=== PATIENT | male | born 1935 | race Caucasian/White ===

== ENCOUNTER 2021-03-09 18:27 | Emergency (ER) | payer BC, MEDICARE ==
[2021-03-09 20:17] LABS: Basophils # (A) 0.1 k/uL (0-0.2); Basophils % (A) 1 %; Eosinophils # (A) 0.5 k/uL (0-0.7); Eosinophils % (A) 5 %; HCT 43.9 % (39.0-53.0); HGB 15.1 gm/dL (13.0-17.5); Lymphocytes # (A) 1.5 k/uL (1.0-4.8); Lymphocytes % (A) 15 %; MCH 31.1 pg (25.0-35.0); MCHC 34.5 g/dL (31.0-37.0); MCV 90.2 fL (80.0-100.0); Mean Platelet Volume 6.4; Monocytes # (A) 0.6 k/uL (0-1.0); Monocytes % (A) 6 %; Neutrophils # (A) 6.9 k/uL (1.3-7.7); Neutrophils % (A) 71 %; Platelet Count 212 k/uL (150-450); RBC 4.87 m/uL (4.30-5.90); RDW 13.6 % (11.5-15.5); WBC 9.6 k/uL (3.8-10.6)
[2021-03-09 20:25] LABS: Albumin 4.5 g/dL (3.5-5.0); Calcium 9.7 mg/dL (8.4-10.2); Potassium 4.7 mmol/L (3.5-5.1); Total Bilirubin 0.6 mg/dL (0.2-1.3); Total Protein 7.8 g/dL (6.3-8.2)
[2021-03-09 20:35] LABS: Appearance,Urine Clear (Clear); Bilirubin,Urine Negative (Negative); Blood,Urine Negative (Negative); Color,Urine Yellow; Glucose,Urine (UA) Negative (Negative); Ketones,Urine Negative (Negative); Leukocyte Esterase,Urine Negative (Negative); Nitrite,Urine Negative (Negative); PH, Urine 5.5 (5.0-8.0); Protein,Urine Negative (Negative); Specific Gravity,Urine 1.015 (1.001-1.035); Urobilinogen,Urine <2.0 mg/dL (<2.0)
--- NOTE | 2021-03-09 20:56 | ED ---
Skin/Abscess/FB HPI - General Chief complaint: Skin/Abscess/Foreign Body Stated complaint: skin problem Source: patient Mode of arrival: ambulatory - History of Present Illness Initial comments: Patient is an 85-year-old male presents to the emergency department with reported rash to his left upper extremity. Patient states he was attempting to wash his hands for dinner when he noted that he had multiple pink nodules to his left forearm. Patient had one specific area on his dorsal hand which he thought he saw "worms coming out of". His sister at bedside agrees that she saw the worms. He reports his whole hand turned black and became swollen. Patient states only has left arm is affected. 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 He denies any head trauma recently. No medication changes. Denies use of any drugs. No other alleviating, precipitating or modifying factors - Related Data Home Medications Medication Instructions Recorded Confirmed Atenolol [Tenormin] 50 mg PO DAILY 03/09/21 03/09/21 Glucosamine Sulfate 500 mg PO DAILY 03/09/21 03/09/21 Lisinopril-Hctz 10-12.5 mg 1 tab PO DAILY 03/09/21 03/09/21 [Zestoretic 10-12.5] Pioglitazone [Actos] 15 mg PO BID 03/09/21 03/09/21 Prevagen 1 tab PO DAILY 03/09/21 03/09/21 Rosuvastatin [Crestor] 10 mg PO HS 03/09/21 03/09/21 Vit C/E/Zn/Coppr/Lutein/Zeaxan 1 cap PO BID 03/09/21 03/09/21 [Preservision Areds 2 Softgel] Allergies Allergy/AdvReac Type Severity Reaction Status Date / Time onion Allergy Rash/Hives Verified 03/09/21 19:42 Review of Systems ROS Statement: Those systems with pertinent positive or pertinent negative responses have been documented in the HPI. ROS Other: All systems not noted in ROS Statement are negative. Past Medical History Past Medical History: Diabetes Mellitus, Hyperlipidemia, Hypertension Additional Past Medical History / Comment(s): Melenoma History of Any Multi-Drug Resistant Organisms: None Reported Past Surgical History: Cholecystectomy Past Psychological History: No Psychological Hx Reported Smoking Status: Never smoker Past Alcohol Use History: None Reported Past Drug Use History: None Reported Course Vital Signs 03/09/21 03/09/21 18:31 22:18 Temperature 97.8 F 98.0 F Pulse Rate 58 L 61 Respiratory 17 18 Rate Blood Pressure 155/67 151/67 O2 Sat by Pulse 96 96 Oximetry Medical Decision Making - Medical Decision Making Upon arrival the patient is placed into room 3. A thorough history and physical exam was performed. There is a small area on the dorsum of the patient's left hand which is remarkable for an abrasion. There is a small amount of dried blood however no active bleeding. No identification of any parasites. Additional red papules which extend up the patient's left arm. Appears consistent with a contact dermatitis. Due to the concern for the patient's hallucinations I did complete laboratory studies all of which are reviewed and are within normal limits. I did call and speak with Dr. Tellez who states the patient has always been very sharp with his medical history and never presented before with such complaint. 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 Patient is not acutely psychotic headache. No suicidal or homicidal ideations. Because of this Dr. Tellez and I felt that the patient could be discharged home and follow-up in her office. I will give him a cream for contact dermatitis. Patient is to place on his left arm 3 times daily. Return to the emergency room for any new or worsening symptoms. Patient agreed to this he was discharged home in stable condition - Lab Data Result diagrams: 03/09/21 19:57 03/09/21 19:57 Lab Results 03/09/21 03/09/21 03/09/21 Range/Units 19:57 19:57 19:57 WBC 9.6 (3.8-10.6) k/uL RBC 4.87 (4.30-5.90) m/uL Hgb 15.1 (13.0-17.5) gm/dL Hct 43.9 (39.0-53.0) % MCV 90.2 (80.0-100.0) fL MCH 31.1 (25.0-35.0) pg MCHC 34.5 (31.0-37.0) g/dL RDW 13.6 (11.5-15.5) % Plt Count 212 (150-450) k/uL MPV 6.4 Neutrophils % 71 % Lymphocytes % 15 % Monocytes % 6 % Eosinophils % 5 % Basophils % 1 % Neutrophils # 6.9 (1.3-7.7) k/uL Lymphocytes # 1.5 (1.0-4.8) k/uL Monocytes # 0.6 (0-1.0) k/uL Eosinophils # 0.5 (0-0.7) k/uL Basophils # 0.1 (0-0.2) k/uL Sodium 137 (137-145) mmol/L Potassium 4.7 (3.5-5.1) mmol/L Chloride 101 (98-107) mmol/L Carbon Dioxide 26 (22-30) mmol/L Anion Gap 10 mmol/L BUN 36 H (9-20) mg/dL Creatinine 1.52 H (0.66-1.25) mg/dL Est GFR (CKD-EPI)AfAm 47 (>60 ml/min/1.73 sqM) Est GFR (CKD-EPI)NonAf 41 (>60 ml/min/1.73 sqM) Glucose 145 H (74-99) mg/dL Plasma Lactic Acid Chon (0.7-2.0) mmol/L Calcium 9.7 (8.4-10.2) mg/dL Total Bilirubin 0.6 (0.2-1.3) mg/dL AST 34 (17-59) U/L ALT 17 (4-49) U/L Alkaline Phosphatase 77 (38-126) U/L Total Protein 7.8 (6.3-8.2) g/dL Albumin 4.5 (3.5-5.0) g/dL TSH 6.840 H (0.465-4.680) mIU/L Free T4 1.21 (0.78-2.19) ng/dL Urine Color Yellow Urine Appearance Clear (Clear) Urine pH 5.5 (5.0-8.0) Ur Specific Stewardson 1.015 (1.001-1.035) Urine Protein Negative (Negative) Urine Glucose (UA) Negative (Negative) Urine Ketones Negative (Negative) Urine Blood Negative (Negative) Urine Nitrite Negative (Negative) Urine Bilirubin Negative (Negative) Urine Urobilinogen <2.0 (<2.0) mg/dL Ur Leukocyte Esterase Negative (Negative) Urine Opiates Screen (NotDetected) Ur Oxycodone Screen (NotDetected) Urine Methadone Screen (NotDetected) Ur Propoxyphene Screen (NotDetected) Ur Barbiturates Screen (NotDetected) U Tricyclic Antidepress (NotDetected) Ur Phencyclidine Scrn (NotDetected) Ur Amphetamines Screen (NotDetected) U Methamphetamines Scrn (NotDetected) U Benzodiazepines Scrn (NotDetected) Urine Cocaine Screen (NotDetected) U Marijuana (THC) Screen (NotDetected) 03/09/21 03/09/21 Range/Units 19:57 19:57 WBC (3.8-10.6) k/uL RBC (4.30-5.90) m/uL Hgb (13.0-17.5) gm/dL Hct (39.0-53.0) % MCV (80.0-100.0) fL MCH (25.0-35.0) pg MCHC (31.0-37.0) g/dL RDW (11.5-15.5) % Plt Count (150-450) k/uL MPV Neutrophils % % Lymphocytes % % Monocytes % % Eosinophils % % Basophils % % Neutrophils # (1.3-7.7) k/uL Lymphocytes # (1.0-4.8) k/uL Monocytes # (0-1.0) k/uL Eosinophils # (0-0.7) k/uL Basophils # (0-0.2) k/uL Sodium (137-145) mmol/L Potassium (3.5-5.1) mmol/L Chloride (98-107) mmol/L Carbon Dioxide (22-30) mmol/L Anion Gap mmol/L BUN (9-20) mg/dL Creatinine (0.66-1.25) mg/dL Est GFR (CKD-EPI)AfAm (>60 ml/min/1.73 sqM) Est GFR (CKD-EPI)NonAf (>60 ml/min/1.73 sqM) Glucose (74-99) mg/dL Plasma Lactic Acid Chon 1.3 (0.7-2.0) mmol/L Calcium (8.4-10.2) mg/dL Total Bilirubin (0.2-1.3) mg/dL AST (17-59) U/L ALT (4-49) U/L Alkaline Phosphatase (38-126) U/L Total Protein (6.3-8.2) g/dL Albumin (3.5-5.0) g/dL TSH (0.465-4.680) mIU/L Free T4 (0.78-2.19) ng/dL Urine Color Urine Appearance (Clear) Urine pH (5.0-8.0) Ur Specific Stewardson (1.001-1.035) Urine Protein (Negative) Urine Glucose (UA) (Negative) Urine Ketones (Negative) Urine Blood (Negative) Urine Nitrite (Negative) Urine Bilirubin (Negative) Urine Urobilinogen (<2.0) mg/dL Ur Leukocyte Esterase (Negative) Urine Opiates Screen Not Detected (NotDetected) Ur Oxycodone Screen Not Detected (NotDetected) Urine Methadone Screen Not Detected (NotDetected) Ur Propoxyphene Screen Not Detected (NotDetected) Ur Barbiturates Screen Not Detected (NotDetected) U Tricyclic Antidepress Not Detected (NotDetected) Ur Phencyclidine Scrn Not Detected (NotDetected) Ur Amphetamines Screen Not Detected (NotDetected) U Methamphetamines Scrn Not Detected (NotDetected) U Benzodiazepines Scrn Not Detected (NotDetected) Urine Cocaine Screen Not Detected (NotDetected) U Marijuana (THC) Screen Not Detected (NotDetected) Disposition Clinical Impression: Contact dermatitis Disposition: HOME SELF-CARE Condition: Stable Instructions (If sedation given, give patient instructions): Contact Dermatitis (ED) Additional Instructions: Please use the cream 3 times daily and follow-up with Dr. Tellez. Call tomorrow to make an appointment. Return to the ED for any new or worsening symptoms. Is patient prescribed a controlled substance at d/c from ED?: No Referrals: Amber Tellez MD [Primary Care Provider] - 1-2 days Time of Disposition: 21:53
--- NOTE | 2021-03-09 21:18 | CT ---
EXAMINATION TYPE: CT brain wo con DATE OF EXAM: 03/09/2021 COMPARISON: None HISTORY: confusion CT DLP: 1092.4 mGycm Automated exposure control for dose reduction was used. Exam performed without contrast. There is diffuse cerebral atrophy. There is no mass effect nor midline shift. There is no sign of int racranial hemorrhage. There is some mucosal thickening in the ethmoid air cells. Calvarium is intact. There is no evidence of cerebral edema. IMPRESSION: Cerebral atrophy. No acute intracranial abnormality.
[2021-03-09 21:27] LABS: Amphetamine Screen,Urine Not Detected (NotDetected); Barbiturate Screen,Urine Not Detected (NotDetected); Benzodiazepines Screen,Urine Not Detected (NotDetected); Cocaine Screen,Urine Not Detected (NotDetected); Methadone Screen, Urine Not Detected (NotDetected); Opiate Screen,Urine Not Detected (NotDetected); Oxycodone Screen, Urine Not Detected (NotDetected); Phencyclidine Screen,Urine Not Detected (NotDetected); Tricyclic Antidepressant,Urine Not Detected (NotDetected); Urn Cannabinoid Scrn Not Detected (NotDetected)
[2021-03-09 21:29] LABS: T4, Free (Free Thyroxine) 1.21 ng/dL (0.78-2.19)
[2021-03-09] MEDS ORDERED: HYDROCORTISONE 1% CREAM 30 GM TUBE TOPICAL STA (21:50)
[2021-03-09 22:22] VITALS: BP 151/67; PULSE 61; RESP 18; TEMP 98
== END 2021-03-09 22:18 | disposition home or self-care (01) ==
LOC: EC 18:27
DX: L25.9 Unspecified contact dermatitis, unspecified cause (principal); E11.9 Type 2 diabetes mellitus without complications; E78.5 Hyperlipidemia, unspecified; I10 Essential (primary) hypertension; Z90.49 Acquired absence of other specified parts of digestive tract
CPT/HCPCS: 36415; 70450; 80053; 80306; 81003; 83605; 84439; 84443; 85025; 99283

== ENCOUNTER 2023-01-30 20:03 | Emergency (ER) | payer MEDICARE ==
[2023-01-30 20:16] VITALS: TEMP 97.4
[2023-01-30] MEDS ORDERED: SODIUM CHLORIDE 0.9% 1,000 ML IV STA (20:37)
--- NOTE | 2023-01-30 21:16 | CT ---
EXAMINATION TYPE: CT brain wo con CT DLP: 1123.4 mGycm, Automated exposure control for dose reduction was used. DATE OF EXAM: 01/30/2023 9:09 PM COMPARISON: . CLINICAL INDICATION:Male, 87 years old with history of lightheaded, melanoma on scalp, visual changes , dizziness TECHNIQUE: Brain: Axial CT images of the brain were obtained with coronal and sagittal reformats created and rev iewed. Contrast used: None. Oral contrast used: None. FINDINGS: Brain: Extra-axial spaces: No abnormal extra-axial fluid collections. Ventricular system: Within normal limits Cerebral parenchyma: No acute intraparenchymal hemorrhage or mass effect. The muñoz-white junction is well differentiated. Cerebellum: Unremarkable. Mass effect: No evidence of midline shift. Intracranial vasculature: unremarkable Soft tissues: Normal. Calvarium/osseous structures: No depressed skull fracture. Paranasal sinuses and mastoid air cells: Mild scattered paranasal sinus disease. Visualized orbits: Bilateral aphakia. IMPRESSION: No acute intracranial process.
--- NOTE | 2023-01-30 21:18 | XR ---
EXAMINATION TYPE: XR chest 2V DATE OF EXAM: 01/30/2023 9:12 PM COMPARISON: None TECHNIQUE: XR chest 2V Frontal and lateral views of the chest. CLINICAL INDICATION:Male, 87 years old with history of lightheaded; FINDINGS: Lungs/Pleura: Low lung volumes are present. Bibasilar atelectasis. Elevated right diaphragm. There is no evidence of pleural effusion, focal consolidation, or pneumothorax. Pulmonary vascularity: Unremarkable. Heart/mediastinum: Cardiomediastinal silhouette is unremarkable. Musculoskeletal: Degenerative changes of the shoulder joints. IMPRESSION: Lung volumes, No acute cardiopulmonary disease/process.
[2023-01-30 21:28] LABS: Basophils % (A) 0 %; Eosinophils # (A) 0.2 k/uL (0-0.7); Eosinophils % (A) 2 %; HCT 42.9 % (39.0-53.0); HGB 14.5 gm/dL (13.0-17.5); Lymphocytes # (A) 1.3 k/uL (1.0-4.8); Lymphocytes % (A) 13 %; MCH 30.7 pg (25.0-35.0); MCHC 33.8 g/dL (31.0-37.0); MCV 90.7 fL (80.0-100.0); Mean Platelet Volume 6.9; Monocytes # (A) 0.7 k/uL (0-1.0); Monocytes % (A) 7 %; Neutrophils # (A) 7.5 k/uL (1.3-7.7); Neutrophils % (A) 76 %; Platelet Count 212 k/uL (150-450); RBC 4.73 m/uL (4.30-5.90); RDW 13.7 % (11.5-15.5); WBC 9.8 k/uL (3.8-10.6)
[2023-01-30 21:41] LABS: African American GFR (CKD) 46 (>60 ml/min/1.73 sqM); Alcohol <10 mg/dL; Anion Gap 13 mmol/L; Blood Urea Nitrogen 34 mg/dL (9-20); Calcium 9.7 mg/dL (8.4-10.2); Carbon Dioxide 24 mmol/L (22-30); Chloride 102 mmol/L (98-107); Glucose 152 mg/dL (74-99); Non-African American GFR(CKD) 40 (>60 ml/min/1.73 sqM); Potassium 4.3 mmol/L (3.5-5.1); Sodium 139 mmol/L (137-145)
[2023-01-30] MEDS ORDERED: SODIUM CHLORIDE 0.9% 500 ML 500 ML IV STA (22:02)
--- NOTE | 2023-01-30 22:44 | ED ---
General Adult HPI - General Chief complaint: Skin/Abscess/Foreign Body Stated complaint: cellulitis Time Seen by Provider: 01/30/23 20:24 Source: patient, RN notes reviewed, old records reviewed Mode of arrival: ambulatory Limitations: no limitations - History of Present Illness Initial comments: Patient is an 87-year-old male who presents emergency department. Chief complaint is lightheadedness but also complaining of worms on his arms as well as some pain and discharge from a spot of skin biopsy for melanoma over his head. States he feels lightheaded intermittently. States it is not severe and has resolved. Also was complaining of blurred vision but believes it is secondary to tearing in his eyes. He states when with tears away, and the p atient is no longer blurred. He is concerned that he has worms crawling under his skin and he states he plucked them out. He is also concerned that they may have gotten into his melanoma site on top of his head and there are areas of excoriations over the site with some erythema surrounding it. Presents for further evaluation and this time. States she was placed on a medication, Pimozide, to treat ticks which are bugs but he believes he has worms. States symptoms overall haven't improved since that time. Presents for further evaluation this time. This presentation is almost identical to prior visits from March 2021. - Related Data Home Medications Medication Instructions Recorded Confirmed Glucosamine Sulfate 500 mg PO DAILY 03/09/21 03/09/21 Lisinopril-Hctz 10-12.5 mg 1 tab PO DAILY 03/09/21 03/09/21 [Zestoretic 10-12.5] Pioglitazone [Actos] 15 mg PO BID 03/09/21 03/09/21 Prevagen 1 tab PO DAILY 03/09/21 03/09/21 Rosuvastatin [Crestor] 10 mg PO HS 03/09/21 03/09/21 Vit C/E/Zn/Coppr/Lutein/Zeaxan 1 cap PO BID 03/09/21 03/09/21 [Preservision Areds 2 Softgel] atenoloL [Tenormin] 50 mg PO DAILY 03/09/21 03/09/21 Previous Rx's Medication Instructions Recorded Cephalexin [Keflex] 500 mg PO Q12HR 7 Days #14 cap 01/30/23 Allergies Allergy/AdvReac Type Severity Reaction Status Date / Time onion Allergy Rash/Hives Verified 03/09/21 19:42 Review of Systems ROS Statement: Those systems with pertinent positive or pertinent negative responses have been documented in the HPI. Review of Systems: CONST: Denies fever EYES: Denies blurry vision ENT: Denies nasal congestion C/V: Denies Chest pain RESP: Denies shortness of breath GI: Denies abdominal pain : Denies dysuria SKIN: Endorses chronic skin rash, as well as concern for rash on head. MSK: Denies joint pain. NEURO: Denies headache ROS Other: All systems not noted in ROS Statement are negative. Past Medical History Past Medical History: Diabetes Mellitus, Hyperlipidemia, Hypertension Additional Past Medical History / Comment(s): Melenoma History of Any Multi-Drug Resistant Organisms: None Reported Past Surgical History: Cholecystectomy Past Psychological History: No Psychological Hx Reported Smoking Status: Never smoker Past Alcohol Use History: None Reported Past Drug Use History: None Reported General Exam - General Exam Comments Initial Comments: General: Appears in no acute distress. HEAD: Normal with no signs of head trauma. Patient has a melanoma biopsy site located over the left scalp with excoriations over it is erythematous around it. No fluctuance palpated. EYES: PERRLA, EOMI, conjunctiva normal, no discharge. Normal visual acuity. Pupils are 3 mm equal bilaterally. Patient has mild tears from both eyes. ENT: Hearing grossly intact, normal oropharynx. RESPIRATORY: Clear breath sounds bilaterally. No wheezes, rales, or rhonchi. C/V: Regular rate and rhythm. S1 and S2 auscultated, no edema, peripheral pulses 2+ and intact throughout ABD: Abd is soft, nontender, nondistended EXT: Normal range of motion, no obvious deformity SKIN: Patient has point lines located over his bilateral arms which she states are worms. This appeared to be more of scars from excoriations. These are chronic and noted on prior visits. Patient also has concerning signs for possible mild cellulitis located on the scalp at the site of prior melanoma due to excoriations. NEURO: Alert and oriented x 4. Cranial nerves II-XII intact. No focal sensory or strength deficits. Limitations: no limitations Course Vital Signs 01/30/23 01/30/23 01/30/23 20:15 20:30 23:42 Temperature 97.4 F L Pulse Rate 105 H 77 72 Respiratory 20 20 18 Rate Blood Pressure 121/78 135/91 132/71 O2 Sat by Pulse 97 100 95 Oximetry Medical Decision Making - Medical Decision Making Was pt. sent in by a medical professional or institution (, [employer], IRONWORKER W[employer]ENCE E[employer]OR, urgent care, hospital, or retirement...) When possible be specific @ -No Did you speak to anyone other than the patient for history (EMS, parent, family, police, friend...)? What history was obtained from this source @ -No Did you review nursing and triage notes (agree or disagree)? Why? @ -I reviewed and agree with nursing and triage notes Were old charts reviewed (outside hosp., previous admission, EMS record, old EKG, old radiological studies, urgent care reports/EKG's, retirement records)? Report findings @ -Old charts reviewed from prior visit from March 2021, when he was complaining of similar concerns. On that visit, Dr. Tellez was contacted by emergency department physician over concern for underlying psychiatric illness over concern for the worms. He was cleared for follow up with Dr. Tellez. Differential Diagnosis (chest pain, altered mental status, abdominal pain women, abdominal pain men, vaginal bleeding, weakness, fever, dyspnea, syncope, headache, dizziness, GI bleed, back pain, seizure, CVA, palpatations, mental health, musculoskeletal)? @ -Dehydration, infection, cellulitis, psychiatric illness. This list is not all-inclusive. EKG interpreted by me (3pts min.). @ -As above X-rays interpreted by me (1pt min.). @ -Chest x-ray shows no obvious acute cardio pulmonary process. CT interpreted by me (1pt min.). @ -CT brain shows no obvious acute intracranial process. U/S interpreted by me (1pt. min.). @ -None done What testing was considered but not performed or refused? (CT, X-rays, U/S, labs)? Why? @ -None What meds were considered but not given or refused? Why? @ -None Did you discuss the management of the patient with other professionals (professionals i.e. , [employer], IRONWORKER W[employer] FENCE E[employer]OR, lab, RT, psych nurse, social science instructor, music internship, teacher, youth corrections officer, correctional casework specialist)? Give summary @ -No Was smoking cessation discussed for >3mins.? @ -No Was critical care preformed (if so, how long)? @ -No Were there social determinants of health that impacted care today? How? (Homelessness, low income, unemployed, alcoholism, drug addiction, transportation, low edu. Level, literacy, decrease access to med. care, usp, rehab)? @ -No Was there de-escalation of care discussed even if they declined (Discuss DNR or withdrawal of care, Hospice)? DNR status @ -No What co-morbidities impacted this encounter? (DM, HTN, Smoking, COPD, CAD, Cancer, CVA, ARF, Chemo, Hep., AIDS, mental health diagnosis, sleep apnea, morbid obesity)? 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 Was patient admitted / discharged? Hospital course, mention meds given and route, prescriptions, significant lab abnormalities, going to OR and other pertinent info. @ -Based on the patient's presentation and physical exam, he continues to talk about worms with me that this appears to be a chronic thing. Is visiting previously for similar complaints. Patient is not a danger to himself or others. No suicidal or homicidal concerns at this time. Therefore as I see is medically cleared he will be discharged home, similar to last visit. He appears to be taking care of himself. As appear mildly dehydrated and we will obtain basic labs, screening troponin, EKG. CT brain and chest x-ray will be obtained. He will be given a 1 L fluid bolus. Patient was in agreement this plan. I'm concerned for possible cellulitis over the excoriations at the biopsy site on his scalp and likely will require antibiotics outpatient. Vital signs within acceptable limits. EKG showed no signs of acute ischemia. Laboratory studies are remarkable for CK D, and elevated lactic acid 3.3 which is likely secondary to dehydration which will be repeated after 1 L fluid bolus, undetectable troponin. Remainder the workup is unremarkable. Imaging was unremarkable. I discussed the findings with the patient. He is still concerned about worms. I discussed that he needs to follow-up with his PCP Dr. Asher she has been managing his outpatient. He was in agreement this plan. We will repeat lactic acid prior to discharge.Repeat lactic acid is within normal limits. On re-evaluation. No current dizziness, no current blurry vision. Feels improved. We discussed at length that the medication he is on is to treat motor tics and not actual bugs. Patient states he understands but keeps coming back to saying he has worms. This is a chronic presentation for the patient. Patient will be treated for cellulitis. I will provide the patient with a prescription for Keflex. I instructed the patient to follow up with their PCP in the next 1-3 days. . I explained that the patient should return to the emergency department if they experience any worsening symptoms. Strict return precautions were discussed with the patient. The patient expressed understanding of these instructions. I answered all questions that the patient had. The patient was discharged home in good condition with their prescriptions and follow up information. Undiagnosed new problem with uncertain prognosis? @ -No Drug Therapy requiring intensive monitoring for toxicity (Heparin, Nitro, Insulin, Cardizem)? @ -No Were any procedures done? @ -No Diagnosis/symptom? @ -Dehydration Acute, or Chronic, or Acute on Chronic? @ -Acute Uncomplicated (without systemic symptoms) or Complicated (systemic symptoms)? @ -Uncomplicated Side effects of treatment? @ -No Exacerbation, Progression, or Severe Exacerbation? @ -No Poses a threat to life or bodily function? How? (Chest pain, [place], [place], pneumonia, PE, COPD, DKA, ARF, appy, cholecystitis, CVA, Diverticulitis, Homicidal, Suicidal, threat to staff... and all critical care pts) @ -No Diagnosis/symptom? @ -CK D Acute, or Chronic, or Acute on Chronic? @ -Chronic Uncomplicated (without systemic symptoms) or Complicated (systemic symptoms)? @ -Uncomplicated Side effects of treatment? @ -none Exacerbation, Progression, or Severe Exacerbation] @ -no Poses a threat to life or bodily function? @ -no Diagnosis/symptom? @ -Cellulitis Acute, or Chronic, or Acute on Chronic? @ -Acute Uncomplicated (without systemic symptoms) or Complicated (systemic symptoms)? @ -Uncomplicated Side effects of treatment? @ -none Exacerbation, Progression, or Severe Exacerbation] @ -no Poses a threat to life or bodily function? @ -no Diagnosis/symptom? @ -Concern for underlying psychiatric diagnosis Acute, or Chronic, or Acute on Chronic? @ -Acute Uncomplicated (without systemic symptoms) or Complicated (systemic symptoms)? @ -Uncomplicated Side effects of treatment? @ -none Exacerbation, Progression, or Severe Exacerbation] @ -no Poses a threat to life or bodily function? @ -no. - Lab Data Result diagrams: 01/30/23 20:54 01/30/23 20:54 Lab Results 01/30/23 01/30/23 01/30/23 Range/Units 20:54 20:54 20:54 WBC 9.8 (3.8-10.6) k/uL RBC 4.73 (4.30-5.90) m/uL Hgb 14.5 (13.0-17.5) gm/dL Hct 42.9 (39.0-53.0) % MCV 90.7 (80.0-100.0) fL MCH 30.7 (25.0-35.0) pg MCHC 33.8 (31.0-37.0) g/dL RDW 13.7 (11.5-15.5) % Plt Count 212 (150-450) k/uL MPV 6.9 Neutrophils % 76 % Lymphocytes % 13 % Monocytes % 7 % Eosinophils % 2 % Basophils % 0 % Neutrophils # 7.5 (1.3-7.7) k/uL Lymphocytes # 1.3 (1.0-4.8) k/uL Monocytes # 0.7 (0-1.0) k/uL Eosinophils # 0.2 (0-0.7) k/uL Basophils # 0.0 (0-0.2) k/uL Sodium 139 (137-145) mmol/L Potassium 4.3 (3.5-5.1) mmol/L Chloride 102 (98-107) mmol/L Carbon Dioxide 24 (22-30) mmol/L Anion Gap 13 mmol/L BUN 34 H (9-20) mg/dL Creatinine 1.53 H (0.66-1.25) mg/dL Est GFR (CKD-EPI)AfAm 46 (>60 ml/min/1.73 sqM) Est GFR (CKD-EPI)NonAf 40 (>60 ml/min/1.73 sqM) Glucose 152 H (74-99) mg/dL Plasma Lactic Acid Chon 3.3 H* (0.7-2.0) mmol/L Calcium 9.7 (8.4-10.2) mg/dL Troponin I (0.000-0.034) ng/mL Serum Alcohol <10 mg/dL Influenza Type A (PCR) (Not Detectd) Influenza Type B (PCR) (Not Detectd) RSV (PCR) (Not Detectd) SARS-CoV-2 (PCR) (Not Detectd) 01/30/23 01/30/23 01/30/23 Range/Units 20:54 20:54 22:25 WBC (3.8-10.6) k/uL RBC (4.30-5.90) m/uL Hgb (13.0-17.5) gm/dL Hct (39.0-53.0) % MCV (80.0-100.0) fL MCH (25.0-35.0) pg MCHC (31.0-37.0) g/dL RDW (11.5-15.5) % Plt Count (150-450) k/uL MPV Neutrophils % % Lymphocytes % % Monocytes % % Eosinophils % % Basophils % % Neutrophils # (1.3-7.7) k/uL Lymphocytes # (1.0-4.8) k/uL Monocytes # (0-1.0) k/uL Eosinophils # (0-0.7) k/uL Basophils # (0-0.2) k/uL Sodium (137-145) mmol/L Potassium (3.5-5.1) mmol/L Chloride (98-107) mmol/L Carbon Dioxide (22-30) mmol/L Anion Gap mmol/L BUN (9-20) mg/dL Creatinine (0.66-1.25) mg/dL Est GFR (CKD-EPI)AfAm (>60 ml/min/1.73 sqM) Est GFR (CKD-EPI)NonAf (>60 ml/min/1.73 sqM) Glucose (74-99) mg/dL Plasma Lactic Acid Chon 1.6 (0.7-2.0) mmol/L Calcium (8.4-10.2) mg/dL Troponin I <0.012 (0.000-0.034) ng/mL Serum Alcohol mg/dL Influenza Type A (PCR) Not Detected (Not Detectd) Influenza Type B (PCR) Not Detected (Not Detectd) RSV (PCR) Not Detected (Not Detectd) SARS-CoV-2 (PCR) Not Detected (Not Detectd) - EKG Data -: EKG Interpreted by Me EKG Comments: 12-lead Electrocardiogram Interpretation Note EKG was reviewed and interpreted by myself. 12-lead ECG performed at 2045 is interpreted by me as revealing normal sinus rhythm at a rate of 95 beats per minute. Indeterminate axis. WA interval is prolonged at 220 ms the patient is a first-degree AV block. QRS duration is 110 ms, QTc is 433 ms.. There were no ST or T wave abnormalities to suggest myocardial ischemia or injury. R wave progression across the precordium was satisfactory. By my interpretation this EKG is non-diagnostic for acute ischemia. No prior EKG for comparison. Disposition Clinical Impression: Cellulitis Disposition: HOME SELF-CARE Condition: Good Instructions (If sedation given, give patient instructions): Cellulitis (ED) Prescriptions: Cephalexin [Keflex] 500 mg PO Q12HR 7 Days #14 cap Is patient prescribed a controlled substance at d/c from ED?: Yes Referrals: Amber Tellez MD [Primary Care Provider] - 1-2 days Time of Disposition: 23:00
[2023-01-30 23:43] VITALS: BP 132/71; PULSE 72; RESP 18
== END 2023-01-30 23:43 | disposition home or self-care (01) ==
LOC: EC 20:03
DX: L03.114 Cellulitis of left upper limb (principal); L03.113 Cellulitis of right upper limb; E78.5 Hyperlipidemia, unspecified; I10 Essential (primary) hypertension; E11.9 Type 2 diabetes mellitus without complications; Z20.822 Contact with and (suspected) exposure to COVID-19; Z91.018 Allergy to other foods; Z79.899 Other long term (current) drug therapy; Z79.84 Long term (current) use of oral hypoglycemic drugs; Z90.49 Acquired absence of other specified parts of digestive tract; Z85.820 Personal history of malignant melanoma of skin
CPT/HCPCS: 36415; 93005; 80048; 83605; 84484; 85025; 87636; 71046; 70450; 99285; 96360; G0480; 80320